=== PATIENT | female | born 1965 | race Caucasian/White ===

== ENCOUNTER 2018-03-27 12:49 | Outpatient (CLI) | payer OTHER ==
[~2018-03-27 12:49] MED LIST: COREG CR10 MG PO; COUMADIN4 MG PO; ECONOPRED PLUS10 ML OP; KEFLEX500 MG PO; KEPPRA500 MG PO; PERCOCET 5/3251 TAB PO
== END 2018-03-27 12:55 | disposition home or self-care (01) ==
LOC: SONOGRAMA 12:49
DX: E04.8 Other specified nontoxic goiter (principal); N18.1 Chronic kidney disease, stage 1; M06.89 Other specified rheumatoid arthritis, multiple sites; N11.8 Other chronic tubulo-interstitial nephritis; N20.2 Calculus of kidney with calculus of ureter

== ENCOUNTER 2018-08-20 18:30 | Emergency (ER) | payer OTHER ==
[~2018-08-20] VITALS: Ht 152.4 cm; Wt 47.6 kg
== END 2018-08-20 22:19 | disposition home or self-care (01) ==
LOC: ER 18:30
DX: S43.084A Other dislocation of right shoulder joint, initial encounter (principal); S42.141A Displaced fracture of glenoid cavity of scapula, right shoulder, initial encounter for closed fracture; W18.09XA Striking against other object with subsequent fall, initial encounter; Y93.89 Activity, other specified; Y92.038 Other place in apartment as the place of occurrence of the external cause; Y99.8 Other external cause status

== ENCOUNTER 2019-01-06 22:24 | Emergency (ER) | payer OTHER ==
[~2019-01-06] VITALS: Ht 152.4 cm; Wt 44.5 kg
[2019-01-06] MEDS ORDERED: SYNTHROID50 MCG (22:43)
[2019-01-06] MEDS ORDERED: PLAQUINIL (22:44)
== END 2019-01-07 06:29 | disposition home or self-care (01) ==
LOC: ER 22:24
DX: S42.291A Other displaced fracture of upper end of right humerus, initial encounter for closed fracture (principal); S00.83XA Contusion of other part of head, initial encounter; S80.02XA Contusion of left knee, initial encounter; S80.01XA Contusion of right knee, initial encounter; R60.0 Localized edema; W18.09XA Striking against other object with subsequent fall, initial encounter; Y93.89 Activity, other specified; Y92.481 Parking lot as the place of occurrence of the external cause; Y99.8 Other external cause status

== ENCOUNTER 2019-09-26 13:22 | Outpatient (CLI) | payer OTHER ==
[~2019-09-26 13:22] MED LIST changes: +PLAQUINIL; +SYNTHROID50 MCG
== END 2019-09-26 13:24 | disposition home or self-care (01) ==
LOC: MAMO-SONO 13:22
DX: Z12.31 Encounter for screening mammogram for malignant neoplasm of breast (principal); Z87.898 Personal history of other specified conditions; N60.11 Diffuse cystic mastopathy of right breast; N60.12 Diffuse cystic mastopathy of left breast; E04.1 Nontoxic single thyroid nodule

== ENCOUNTER 2019-09-27 14:22 | Outpatient (CLI) | payer OTHER | END 2019-09-27 14:32 | disposition home or self-care (01) | LOC: NUCLEAR 14:22 | DX: M85.88 Other specified disorders of bone density and structure, other site (principal) ==

== ENCOUNTER 2021-01-19 13:31 | Outpatient (CLI) | payer OTHER ==
[~2021-01-19 13:31] MED LIST changes: +ORPHENADRINE C100 MG PO
== END 2021-01-19 13:50 | disposition home or self-care (01) ==
LOC: MAMO-SONO 13:31
PROVIDERS: ATTEND Obstetrics & Gynecology Gynecology
DX: Z12.31 Encounter for screening mammogram for malignant neoplasm of breast (principal); Z87.898 Personal history of other specified conditions; N64.4 Mastodynia

== ENCOUNTER → 2021-11-18 | Outpatient (CLI) | payer OTHER | END | disposition home or self-care (01) | LOC: SONOGRAMA 08:16 | PROVIDERS: ATTEND Internal Medicine Rheumatology | DX: R10.84 Generalized abdominal pain (principal) ==

== ENCOUNTER → 2022-01-11 | Outpatient (CLI) | payer OTHER | END | disposition home or self-care (01) | LOC: NUCLEAR 11:30 | PROVIDERS: ATTEND Internal Medicine Rheumatology | DX: M81.0 Age-related osteoporosis without current pathological fracture (principal); M85.88 Other specified disorders of bone density and structure, other site ==

== ENCOUNTER 2022-02-02 08:28 | Outpatient (CLI) | payer OTHER | END 2022-02-02 08:31 | disposition home or self-care (01) | LOC: RX STUDY 08:28 | PROVIDERS: ATTEND Internal Medicine Gastroenterology | DX: K21.9 Gastro-esophageal reflux disease without esophagitis (principal); K44.9 Diaphragmatic hernia without obstruction or gangrene; Q39.6 Congenital diverticulum of esophagus ==

== ENCOUNTER 2023-01-19 13:47 | Outpatient (CLI) | payer OTHER | END 2023-01-19 13:50 | disposition home or self-care (01) | LOC: MAMO-SONO 13:47 | PROVIDERS: ATTEND Internal Medicine Rheumatology | DX: Z12.31 Encounter for screening mammogram for malignant neoplasm of breast (principal); N60.11 Diffuse cystic mastopathy of right breast; N60.12 Diffuse cystic mastopathy of left breast ==

== ENCOUNTER 2023-02-14 17:36 | Inpatient (IN) | payer OTHER ==
[~2023-02-14] VITALS: Ht 152.4 cm; Wt 36.3 kg
[2023-02-15] MEDS ORDERED: HYDROXYCHLOROQ200 MG (15:12)
[2023-02-15] MEDS ORDERED: CARVEDILOL3.125 M1 (15:12)
[2023-02-15] MEDS ORDERED: RAYOS5 MG (15:12)
[2023-02-15] MEDS ORDERED: CITRACAL + D E1 EACH (15:13)
[2023-02-15] MEDS ORDERED: BIOTIN10000 MCG (15:13)
[2023-02-15] MEDS ORDERED: [UNRECOGNIZED DRUG - OTHER] (15:13)
[2023-02-15] MEDS ORDERED: CITRACAL-VIT D1 EAC1 (15:13)
== END 2023-02-24 15:38 | disposition home or self-care (01) | DRG 693 ==
LOC: ER 17:36 → MEDJ 23:36 → SEC-K 02-15 06:46 → MEDJ 02-15 18:10
PROVIDERS: ADMIT Internal Medicine; ATTEND Internal Medicine
PROC: BW21ZZZ Computerized Tomography (CT Scan) of Abdomen and Pelvis (ICD-10-PCS; 2023-02-14)
PROC: BW24ZZZ Computerized Tomography (CT Scan) of Chest and Abdomen (ICD-10-PCS; 2023-02-15)
PROC: B24BZZZ Ultrasonography of Heart with Aorta (ICD-10-PCS; 2023-02-15)
PROC: 4A12X4Z Monitoring of Cardiac Electrical Activity, External Approach (ICD-10-PCS; 2023-02-15)
PROC: 30233N1 Transfusion of Nonautologous Red Blood Cells into Peripheral Vein, Percutaneous Approach (ICD-10-PCS; 2023-02-16)
PROC: 0TP98DZ Removal of Intraluminal Device from Ureter, Via Natural or Artificial Opening Endoscopic (ICD-10-PCS; principal; 2023-02-18)
PROC: 30233R1 Transfusion of Nonautologous Platelets into Peripheral Vein, Percutaneous Approach (ICD-10-PCS; 2023-02-18)
DX: N13.2 Hydronephrosis with renal and ureteral calculous obstruction (principal); U07.1 COVID-19; C85.90 Non-Hodgkin lymphoma, unspecified, unspecified site; D63.0 Anemia in neoplastic disease; Z95.2 Presence of prosthetic heart valve; M32.9 Systemic lupus erythematosus, unspecified; I48.91 Unspecified atrial fibrillation; E03.9 Hypothyroidism, unspecified; D75.829 Heparin-induced thrombocytopenia, unspecified